=== PATIENT | female | born 1995 | race Caucasian/White ===

== ENCOUNTER 2017-01-14 11:14 | Emergency (ER) | payer OTHER ==
[~2017-01-14] VITALS: Ht 167.6 cm; Wt 73.1 kg
[2017-01-14 13:21] LABS: BASOPHIL % 0.4 % (0-2); PLATELET COUNT 249 x10^3mcL (130-400); RED CELL DISTRIBUTION WIDTH 13.8 % (11.5-14.5)
[2017-01-14 15:04] VITALS: BP 103/60
== END 2017-01-14 15:04 | disposition home or self-care (01) ==
LOC: ED 11:14
PROVIDERS: Emergency Medicine
DX: O23.591 Infection of other part of genital tract in pregnancy, first trimester (principal); Z3A.13 13 weeks gestation of pregnancy

== ENCOUNTER 2017-07-08 11:42 | Emergency (ER) | payer SELFPAY ==
[2017-07-08 12:57] VITALS: BP 133/77
== END 2017-07-08 12:57 | disposition short-term general hospital (02) ==
LOC: ED 11:42
DX: O26.893 Other specified pregnancy related conditions, third trimester (principal); R10.30 Lower abdominal pain, unspecified; R10.11 Right upper quadrant pain; Z3A.38 38 weeks gestation of pregnancy